=== PATIENT | male | born 1995 | race Caucasian/White ===

== ENCOUNTER 2017-01-06 13:04 | Emergency (ER) | payer MEDICAID ==
[~2017-01-06] VITALS: Ht 177.8 cm; Wt 77.0 kg
[2017-01-06 14:28] VITALS: BP 114/71
[2017-01-06] MEDS ORDERED: LIDOCAINE HCL 1% 20ML VIAL (Pyxis) INJ INFIL ONE (15:45)
[2017-01-06] MEDS ORDERED: BACITRACIN ZINC OINT UDPKT TOP ONE (15:45)
== END 2017-01-06 17:32 | disposition home or self-care (01) ==
LOC: ER 15:34
DX: S61.211A Laceration without foreign body of left index finger without damage to nail, initial encounter (principal); W26.0XXA Contact with knife, initial encounter; Y93.89 Activity, other specified; Y92.010 Kitchen of single-family (private) house as the place of occurrence of the external cause
CPT/HCPCS: 12002; 99283; J3490; Z7610

== ENCOUNTER 2017-01-16 15:28 | Emergency (ER) | payer MEDICAID ==
[~2017-01-16] VITALS: Ht 172.7 cm; Wt 78.0 kg
[2017-01-16 15:37] VITALS: BP 122/71
== END 2017-01-16 18:15 | disposition home or self-care (01) ==
LOC: ER 18:05
DX: Z48.02 Encounter for removal of sutures (principal)
CPT/HCPCS: 99283